=== PATIENT | female | born 1940 | race Caucasian/White ===

== ENCOUNTER 2020-07-23 16:16 | Inpatient (IN) ==
[2020-07-23] MEDS ORDERED: NS 1000 ML 1,000 ML IV SCH ×2 (18:00→20:00)
[2020-07-23 18:42] LABS: BASOPHILS % (AUTO) 0.7 % (0.2-1.0); EOSINOPHILS # (AUTO) 0.2 x10^3/uL (0.0-0.2); EOSINOPHILS % (AUTO) 2.6 % (0.9-2.9); HEMATOCRIT 31.8 % (36.0-47.0); HEMOGLOBIN 10.2 g/dL (12.0-16.0); LYMPHOCYTES # (AUTO) 1.6 X10^3/uL (1.3-2.9); MEAN CORPUSCULAR HEMOGLOBIN 29.7 pg (27.0-34.0); MEAN CORPUSCULAR HGB CONC 32.2 g/dL (33.0-35.0); MEAN CORPUSCULAR VOLUME 92.3 fL (80.0-100.0); MEAN PLATELET VOLUME 8.5 fL (7.4-11.0); MONOCYTES # (AUTO) 0.6 x10^3/uL (0.3-0.8); MONOCYTES % (AUTO) 9.6 % (0.0-13.0); NEUTROPHILS # (AUTO) 3.4 x10^3/uL (2.2-4.8); NEUTROPHILS % (AUTO) 59.1 % (42.0-75.0); PLATELET COUNT 154 X10^3/uL (150.0-450.0); RED BLOOD COUNT 3.44 X10^6/uL (3.5-5.4); RED CELL DISTRIBUTION WIDTH 14.5 % (11.6-16.5); WHITE BLOOD COUNT 5.8 X10^3/uL (3.6-10.0)
--- NOTE | 2020-07-23 18:47 | RAD ---
RIB SERIESHISTORY:CoughStudy: Single view of the chest.Comparison:NoneFindings:Cardiomegaly and pulmonary vascular congestion No focal consolidations, pleural effusions or pneumothorax. Osseous structures demonstrate no acute abnormality.IMPRESSION:1. Cardiomegaly and pulmonary vascular congestion.Electronically signed by: MARTIN CORONADO (July 23, 2020 18:45:28)
[2020-07-23 19:00] LABS: LACTIC ACID 1.9 mmol/L (0.4-2.0)
[2020-07-23 19:06] LABS: ALBUMIN 3.3 g/dL (3.4-5.0); CALCIUM 10.1 mg/dL (8.5-10.1); CARBON DIOXIDE 35.3 mmol/L (21-32); COR CA(FOR HYPOALB) 10.7 mg/dL (8.5-10.1); CREATININE 1.62 mg/dL (0.55-1.02); FREE T4 (FREE THYROXINE) 1.16 ng/dL (0.76-1.46); TOTAL PROTEIN 7.9 g/dL (6.4-8.2); TSH (3RD GENERATION) 8.444 uIU/mL (0.358-3.74)
[2020-07-23 19:37] LABS: ABG BASE EXCESS 11.7 mmol/L (-2.0-2.0)
[2020-07-23 19:39] LABS: ABG ALLEN TEST POS
[2020-07-23] MEDS: ROCEPHIN 1 GRAM IV PREMIX 1 G/50 ML IV.SOLN. IV SCH (19:45)
[2020-07-23 20:08] LABS: BILIRUBIN,URINE NEGATIVE (NEGATIVE); BLOOD/HEMOGLOBIN,URINE NEGATIVE (NEGATIVE); GLUCOSE, URINE NEGATIVE (NEGATIVE); KETONES,URINE NEGATIVE (NEGATIVE); LEUKOCYTE ESTERASE ,URINE 1+ (NEGATIVE); NITRITES,URINE NEGATIVE (NEGATIVE); PROTEIN,URINE 2+ (NEGATIVE); UROBILINOGEN,URINE NORMAL (NORMAL)
[2020-07-23 20:19] LABS: APPEARANCE,URINE CLEAR (CLEAR); COLOR,URINE YELLOW (YELLOW)
[2020-07-23 20:20] LABS: BACTERIA,URINE TRACE /HPF (NEGATIVE); RBC,URINE 0-2 /HPF (0-3); SQUAMOUS EPITHELIAL CELL,UR RARE /HPF (NEGATIVE)
[2020-07-23] MEDS ORDERED: NS 1000 ML 1,000 ML IV ONE (20:57)
[2020-07-23] MEDS ORDERED: REQUIP PO ONE (22:00)
[2020-07-23] MEDS: NS 1000 ML 1,000 ML IV SCH (22:07)
[2020-07-23] MEDS: REQUIP PO SCH (22:07)
[2020-07-23] MEDS: KAYEXALATE SUSP PO SCH (22:07)
[2020-07-24] MEDS: KAYEXALATE SUSP PO SCH (05:00)
[2020-07-24 08:01] LABS: ABG BASE EXCESS 11.1 mmol/L (-2.0-2.0)
[2020-07-24 08:02] LABS: ABG ALLEN TEST POS
[2020-07-24] MEDS: ROCEPHIN 1 GRAM IV PREMIX 1 G/50 ML IV.SOLN. IV SCH (08:14)
[2020-07-24] MEDS: REQUIP PO SCH ×2 (08:15→21:16)
[2020-07-24 08:42] LABS: BASOPHILS % (AUTO) 0.5 % (0.2-1.0); EOSINOPHILS # (AUTO) 0.2 x10^3/uL (0.0-0.2); HEMATOCRIT 30.9 % (36.0-47.0); HEMOGLOBIN 9.8 g/dL (12.0-16.0); LYMPHOCYTES # (AUTO) 1.2 X10^3/uL (1.3-2.9); LYMPHOCYTES % (AUTO) 29.4 % (21.0-51.0); MEAN CORPUSCULAR HEMOGLOBIN 29.2 pg (27.0-34.0); MEAN CORPUSCULAR HGB CONC 31.7 g/dL (33.0-35.0); MEAN CORPUSCULAR VOLUME 92.2 fL (80.0-100.0); MEAN PLATELET VOLUME 8.4 fL (7.4-11.0); MONOCYTES # (AUTO) 0.4 x10^3/uL (0.3-0.8); MONOCYTES % (AUTO) 10.7 % (0.0-13.0); NEUTROPHILS # (AUTO) 2.2 x10^3/uL (2.2-4.8); NEUTROPHILS % (AUTO) 55.4 % (42.0-75.0); PLATELET COUNT 132 X10^3/uL (150.0-450.0); RED BLOOD COUNT 3.35 X10^6/uL (3.5-5.4); RED CELL DISTRIBUTION WIDTH 14.8 % (11.6-16.5)
[2020-07-24 08:53] LABS: ALBUMIN 2.9 g/dL (3.4-5.0); CALCIUM 9.2 mg/dL (8.5-10.1); CARBON DIOXIDE 34.1 mmol/L (21-32); COR CA(FOR HYPOALB) 10.1 mg/dL (8.5-10.1); CREATININE 1.25 mg/dL (0.55-1.02); TOTAL PROTEIN 7.2 g/dL (6.4-8.2)
[2020-07-24] MEDS: BENICAR TAB 40 MG PO SCH (09:53)
[2020-07-24] MEDS: TOPROL XL PO SCH (09:54)
--- NOTE | 2020-07-24 12:50 | DR.H&P ---
H&P - History & Physical for Day of: H&P Date: 07/23/20 - Chief Complaint Chief Complaint: AMS, SOB, WEAKNESS, DEHYDRATION - History of Present Illness History of Present Illness: PT IS 80 WF DIRECT ADMIT WITH CO PER FAMILY OF AMS, WEAKNESS AND DEHYDRATION. REPORTED MULTIPLE FALLS IN LAST FEW WEEKS. PT HAS HAD POOR PO FLUID INTAKE WITH INCREASED LOWER LEG SWELLING AND INCREASED SOB. PT FAMILY REPORTS HAVING DIFFICULT TIME CARING FOR HER DUE TO INCREASED WEAKNESS. PT HAS PMH OF HTN, OA, CHF, COPD. PT ADMITTED FOR TREATMENT OF ACUTE ILLNESS - Past Medical History Past Medical History: Anxiety, Arthritis, COPD, Coronary Artery Disease, Diabetes, Dyslipidemia, GERD, Hyperthyroidism - Past Surgical History Surgical History: Cholecystectomy, Hysterectomy, Joint Replacement, Ortho Surgery - Family History Family Medical History: Diabetes Mellitus, Coronary Artery Disease - Social History Does patient currently use any type of tobacco product: No Have you used tobacco products in the last 12 months: No Type of Tobacco Use: None Does any household member use tobacco: No Alcohol Use: None Drug Use: None - Medications Home Medications: adhesive tape Allergy (Verified 07/23/20 19:04) meperidine [From Demerol] Adverse Reaction (Verified 07/23/20 19:04) CONTINUE taking the following medications atorvastatin 20 mg PO HS 07/24/20 [History] clonazepam 1.5 mg PO HS 07/24/20 [History] esomeprazole magnesium 40 mg PO BID 07/24/20 [History] ferrous sulfate 325 mg PO BIDWM 07/24/20 [History] furosemide 20 mg PO DAILY 07/24/20 [History] gabapentin 600 mg PO BID 07/24/20 [History] insulin glargine [Lantus U-100 Insulin] SUBCUT 07/24/20 [History] insulin lispro [Humalog U-100 Insulin] 07/24/20 [History] lidocaine 1 patch TRANSDERMAL DAILY 07/24/20 [History] meloxicam 15 mg PO DAILY 07/24/20 [History] metoclopramide HCl 10 mg PO ACHS 07/24/20 [History] metoprolol succinate 25 mg PO DAILY 07/24/20 [History] naproxen 500 mg PO BID 07/24/20 [History] olmesartan 20 mg PO DAILY 07/24/20 [History] pramipexole 0.75 mg PO HS 07/24/20 [History] ropinirole 2 mg PO BID 07/24/20 [History] sucralfate 1 g PO QID 07/24/20 [History] trazodone 100 mg PO HS 07/24/20 [History] ursodiol 900 mg PO HS 07/24/20 [History] - Review of Systems Constitutional: Weakness Eyes: No Symptoms Reported ENT: No Symptoms Reported Respiratory: Shortness of Breath Cardiovascular: Edema Gastrointestinal: No Symptoms Reported Genitourinary: No Symptoms Reported Musculoskeletal: Back Pain, Leg Pain Skin: No Symptoms Reported Neurological: Weakness - Physical Exam Vital Signs: Temperature 98.7 F Pulse Rate [Left Radial] 90 Respiratory Rate 22 Blood Pressure [Left Arm] 187/84 Blood Pressure [Right Arm] 167/71 O2 Sat by Pulse Oximetry 91 Oriented: Person Eyes: Normal Ear: Normal Nose: Normal Throat: Normal Respiratory: RLL Diminished, LLL Diminished Cardiovascular: Normal : Normal Auscultation: Bowel Sounds: Normal Palpation: Normal Tenderness: Normal Skin: Decreased Turgur Musculoskeletal: Right, Left, Leg, Back:Lumbar, Motor Deficit Psychiatric: Anxiety Affect: Anxious Speech Pattern: Appropriate, Delayed - Assessment/Plan (1) Hypoxemia Status: Acute Plan: ADMIT, CXR ON ADMISSION. CARDIAC MONITORING, SUPPLEMENTAL O2. RESP CONSULT, IV HYDRATION, CE. ADMISSION AND AM LABS. GENTLE IV HYDRATION, MASTERSON WITH STRICT I&OS. UC AND BC ON ADMISSION, VERIFY HOME MEDICATION (2) Acute hyperkalemia Status: Acute (3) Dehydration Status: Acute (4) Altered mental status Status: Acute (5) Weakness Status: Acute (6) Hypertension Status: Acute - Allergies Allergies/Adverse Reactions: Allergies Allergy/AdvReac Type Severity Reaction Status Date / Time adhesive tape Allergy Verified 07/23/20 19:04 meperidine [From Demerol] AdvReac Verified 07/23/20 19:04
[2020-07-24 13:13] LABS: CKMB % 2.9 % (<4); CREATINE KINASE 34 Units/L (26-192); CREATINE KINASE MB < 1.0 ng/mL (0-4.0); TROPONIN I < 0.02 ng/mL (0-1.5)
[2020-07-24] MEDS ORDERED: ZOFRAN INJ 4 MG VIAL ONE (14:20)
[2020-07-24] MEDS: ZOFRAN INJ 4 MG VIAL IVP PRN (14:24)
[2020-07-24] MEDS: LASIX IVP SCH (16:45)
[2020-07-24] MEDS ORDERED: DESYREL PO ONE (19:22)
[2020-07-24] MEDS ORDERED: LIPITOR TAB 20 MG ONE (19:22)
[2020-07-24] MEDS: LIPITOR TAB 20 MG PO SCH (21:17)
[2020-07-24] MEDS: NS 1000 ML 1,000 ML IV SCH (21:17)
[2020-07-24] MEDS: DESYREL PO SCH (21:17)
--- NOTE | 2020-07-25 06:33 | RAD ---
HISTORYAMS CHFSTUDYAP [id number]/06/2021FINDINGSStable cardiomegaly with no evidence for localized pneumonia, pulmonary edema or other acute process. Contrast material again noted in vertebrae from previous surgical procedures. Neurostimulator device projected over the lower midline thoracic spine.IMPRESSIONNo interval change or acute abnormality identified.Electronically signed by: DANGELO PANIAGUA (July 25, 2020 06:31:10)
[2020-07-25 06:55] LABS: BASOPHILS % (AUTO) 0.5 % (0.2-1.0); EOSINOPHILS # (AUTO) 0.1 x10^3/uL (0.0-0.2); HEMATOCRIT 31.7 % (36.0-47.0); LYMPHOCYTES # (AUTO) 0.9 X10^3/uL (1.3-2.9); LYMPHOCYTES % (AUTO) 20.3 % (21.0-51.0); MEAN CORPUSCULAR HGB CONC 31.4 g/dL (33.0-35.0); MEAN CORPUSCULAR VOLUME 92.2 fL (80.0-100.0); MEAN PLATELET VOLUME 8.6 fL (7.4-11.0); MONOCYTES # (AUTO) 0.5 x10^3/uL (0.3-0.8); MONOCYTES % (AUTO) 10.8 % (0.0-13.0); NEUTROPHILS % (AUTO) 65.4 % (42.0-75.0); PLATELET COUNT 127 X10^3/uL (150.0-450.0); RED BLOOD COUNT 3.44 X10^6/uL (3.5-5.4); RED CELL DISTRIBUTION WIDTH 14.4 % (11.6-16.5); WHITE BLOOD COUNT 4.6 X10^3/uL (3.6-10.0)
[2020-07-25 07:13] LABS: ALBUMIN 3.1 g/dL (3.4-5.0); CALCIUM 9.9 mg/dL (8.5-10.1); CARBON DIOXIDE 34.6 mmol/L (21-32); COR CA(FOR HYPOALB) 10.6 mg/dL (8.5-10.1); CREATININE 1.2 mg/dL (0.55-1.02); TOTAL PROTEIN 7.6 g/dL (6.4-8.2)
[2020-07-25] MEDS: NS 1000 ML 1,000 ML IV SCH ×2 (07:39→15:23)
[2020-07-25] MEDS: TOPROL XL PO SCH (08:37)
[2020-07-25] MEDS: ROCEPHIN 1 GRAM IV PREMIX 1 G/50 ML IV.SOLN. IV SCH ×2 (08:37→22:15)
[2020-07-25] MEDS: BENICAR TAB 40 MG PO SCH (08:37)
[2020-07-25] MEDS: REQUIP PO SCH ×2 (08:37→20:57)
[2020-07-25 08:52] VITALS: BMI 40.1
[2020-07-25] MEDS: LASIX IVP SCH (09:10)
[2020-07-25] MEDS: LIPITOR TAB 20 MG PO SCH (20:57)
[2020-07-25] MEDS: DESYREL PO SCH (20:57)
[2020-07-25] MEDS ORDERED: HumuLIN R ONE (21:36)
[2020-07-25] MEDS: HumuLIN R SUBCUT PRN (21:40)
[2020-07-25] MEDS: ZOFRAN INJ 4 MG VIAL IVP PRN (23:05)
[2020-07-26] MEDS: NS 1000 ML 1,000 ML IV SCH ×2 (04:02→21:08)
[2020-07-26] MEDS: HumuLIN R SUBCUT PRN ×3 (05:27→21:30)
[2020-07-26 06:21] LABS: BASOPHILS % (AUTO) 0.5 % (0.2-1.0); EOSINOPHILS # (AUTO) 0.2 x10^3/uL (0.0-0.2); EOSINOPHILS % (AUTO) 3.4 % (0.9-2.9); HEMATOCRIT 31.1 % (36.0-47.0); LYMPHOCYTES % (AUTO) 18.1 % (21.0-51.0); MEAN CORPUSCULAR HEMOGLOBIN 29.4 pg (27.0-34.0); MEAN PLATELET VOLUME 7.5 fL (7.4-11.0); MONOCYTES # (AUTO) 0.6 x10^3/uL (0.3-0.8); MONOCYTES % (AUTO) 10.6 % (0.0-13.0); NEUTROPHILS # (AUTO) 3.6 x10^3/uL (2.2-4.8); NEUTROPHILS % (AUTO) 67.4 % (42.0-75.0); PLATELET COUNT 129 X10^3/uL (150.0-450.0); RED BLOOD COUNT 3.38 X10^6/uL (3.5-5.4); RED CELL DISTRIBUTION WIDTH 14.4 % (11.6-16.5); WHITE BLOOD COUNT 5.3 X10^3/uL (3.6-10.0)
[2020-07-26 06:34] LABS: CALCIUM 9.5 mg/dL (8.5-10.1); CARBON DIOXIDE 33.9 mmol/L (21-32); COR CA(FOR HYPOALB) 10.3 mg/dL (8.5-10.1); CREATININE 1.14 mg/dL (0.55-1.02); TOTAL PROTEIN 7.6 g/dL (6.4-8.2)
[2020-07-26] MEDS: REQUIP PO SCH ×2 (08:43→21:10)
[2020-07-26] MEDS: BENICAR TAB 40 MG PO SCH (08:44)
[2020-07-26] MEDS: TOPROL XL PO SCH (08:44)
[2020-07-26] MEDS: PROzac PO SCH (13:19)
[2020-07-26] MEDS: LASIX IVP SCH (17:20)
[2020-07-26] MEDS ORDERED: COZAAR PO STA (17:50)
[2020-07-26] MEDS ORDERED: COZAAR ONE (17:54)
[2020-07-26] MEDS: ROCEPHIN 1 GRAM IV PREMIX 1 G/50 ML IV.SOLN. IV SCH (21:07)
[2020-07-26] MEDS: LIPITOR TAB 20 MG PO SCH (21:10)
[2020-07-26] MEDS: DESYREL PO SCH (21:10)
[2020-07-26] MEDS: SNACK - Diabetic Appropriate PO SCH (21:40)
[2020-07-27 04:56] LABS: ABG BASE EXCESS 10.1 mmol/L (-2.0-2.0)
[2020-07-27 04:57] LABS: ABG ALLEN TEST POS
[2020-07-27] MEDS: HumuLIN R SUBCUT PRN ×4 (05:33→20:55)
--- NOTE | 2020-07-27 06:39 | RAD ---
HISTORYHYPOXIASTUDYCHEST, 1 [id number]/08/2021.TECHNIQUEAP view of the chestFINVAIL HEALTH HOSPITALpine neurostimulator noted. The cardiac silhouette is mildly enlarged. Mild bibasilar patchy opacities appears similar to prior. No definite pleural effusion or pneumothorax. Soft tissue attenuation limits evaluation.IMPRESSIONSimilar appearance of mild bibasilar patchy opacities may represent atelectasis or pneumonia.Electronically signed by: Ld Suarez (July 27, 2020 06:37:32)
[2020-07-27 06:49] LABS: BASOPHILS % (AUTO) 0.4 % (0.2-1.0); EOSINOPHILS # (AUTO) 0.2 x10^3/uL (0.0-0.2); EOSINOPHILS % (AUTO) 3.2 % (0.9-2.9); HEMATOCRIT 31.7 % (36.0-47.0); HEMOGLOBIN 10.5 g/dL (12.0-16.0); LYMPHOCYTES # (AUTO) 1.1 X10^3/uL (1.3-2.9); LYMPHOCYTES % (AUTO) 16.1 % (21.0-51.0); MEAN CORPUSCULAR HEMOGLOBIN 30.1 pg (27.0-34.0); MEAN CORPUSCULAR HGB CONC 33.2 g/dL (33.0-35.0); MEAN CORPUSCULAR VOLUME 90.6 fL (80.0-100.0); MEAN PLATELET VOLUME 7.8 fL (7.4-11.0); MONOCYTES # (AUTO) 0.6 x10^3/uL (0.3-0.8); MONOCYTES % (AUTO) 9.8 % (0.0-13.0); NEUTROPHILS # (AUTO) 4.6 x10^3/uL (2.2-4.8); NEUTROPHILS % (AUTO) 70.5 % (42.0-75.0); PLATELET COUNT 129 X10^3/uL (150.0-450.0); RED CELL DISTRIBUTION WIDTH 14.4 % (11.6-16.5); WHITE BLOOD COUNT 6.5 X10^3/uL (3.6-10.0)
[2020-07-27 07:05] LABS: ALANINE AMINOTRANSFERASE 35 Units/L (12-78); ALBUMIN 3.2 g/dL (3.4-5.0); ALKALINE PHOSPHATASE 54 Units/L (46-116); ASPARTATE AMINO TRANSFERASE 47 Units/L (15-37); BLOOD UREA NITROGEN 18 mg/dL (7-18); CALCIUM 9.4 mg/dL (8.5-10.1); CHLORIDE 97 mmol/L (98-107); COR NA(FOR HYPERGLY) 138 mmol/L (136-145); CREATININE 1.05 mg/dL (0.55-1.02); SODIUM 135 mmol/L (136-145); TOTAL PROTEIN 7.9 g/dL (6.4-8.2); eGFR NON BLACK RACES 54 (>60)
[2020-07-27] MEDS ORDERED: COZAAR PO SCH (09:00)
[2020-07-27] MEDS: LASIX IVP SCH (09:13)
[2020-07-27] MEDS: TOPROL XL PO SCH (09:15)
[2020-07-27] MEDS: REQUIP PO SCH ×2 (09:15→20:36)
[2020-07-27] MEDS: BENICAR TAB 40 MG PO SCH (09:16)
[2020-07-27] MEDS: NS 1000 ML 1,000 ML IV SCH ×3 (09:16→23:22)
[2020-07-27] MEDS: PROzac PO SCH (09:19)
[2020-07-27] MEDS: LOVENOX INJ 40 MG SYR SC SCH (13:06)
[2020-07-27] MEDS: ROCEPHIN 1 GRAM IV PREMIX 1 G/50 ML IV.SOLN. IV SCH (20:35)
[2020-07-27] MEDS: LIPITOR TAB 20 MG PO SCH (20:35)
[2020-07-27] MEDS: DESYREL PO SCH (20:35)
[2020-07-27] MEDS: SNACK - Diabetic Appropriate PO SCH (20:36)
[2020-07-28] MEDS: HumuLIN R SUBCUT PRN ×3 (05:46→16:31)
[2020-07-28 06:28] LABS: BASOPHILS % (AUTO) 0.5 % (0.2-1.0); EOSINOPHILS # (AUTO) 0.1 x10^3/uL (0.0-0.2); EOSINOPHILS % (AUTO) 1.6 % (0.9-2.9); HEMATOCRIT 32.1 % (36.0-47.0); HEMOGLOBIN 10.6 g/dL (12.0-16.0); LYMPHOCYTES % (AUTO) 15.3 % (21.0-51.0); MEAN CORPUSCULAR HEMOGLOBIN 29.9 pg (27.0-34.0); MEAN CORPUSCULAR HGB CONC 32.9 g/dL (33.0-35.0); MEAN PLATELET VOLUME 8.2 fL (7.4-11.0); MONOCYTES # (AUTO) 0.7 x10^3/uL (0.3-0.8); MONOCYTES % (AUTO) 9.7 % (0.0-13.0); NEUTROPHILS # (AUTO) 4.9 x10^3/uL (2.2-4.8); NEUTROPHILS % (AUTO) 72.9 % (42.0-75.0); PLATELET COUNT 122 X10^3/uL (150.0-450.0); RED BLOOD COUNT 3.53 X10^6/uL (3.5-5.4); RED CELL DISTRIBUTION WIDTH 14.6 % (11.6-16.5); WHITE BLOOD COUNT 6.7 X10^3/uL (3.6-10.0)
[2020-07-28 06:43] LABS: ALBUMIN 3.1 g/dL (3.4-5.0); CALCIUM 9.5 mg/dL (8.5-10.1); CARBON DIOXIDE 32.3 mmol/L (21-32); COR CA(FOR HYPOALB) 10.2 mg/dL (8.5-10.1); CREATININE 1.13 mg/dL (0.55-1.02); TOTAL PROTEIN 7.7 g/dL (6.4-8.2)
[2020-07-28] MEDS: PROzac PO SCH (09:30)
[2020-07-28] MEDS: TOPROL XL PO SCH (09:30)
[2020-07-28] MEDS: BENICAR TAB 40 MG PO SCH (09:31)
[2020-07-28] MEDS: LOVENOX INJ 40 MG SYR SC SCH (09:31)
[2020-07-28] MEDS: REQUIP PO SCH ×2 (09:31→21:08)
[2020-07-28] MEDS: NS 1000 ML 1,000 ML IV SCH ×2 (13:40→16:23)
[2020-07-28] MEDS ORDERED: SNACK - Diabetic Appropriate PO SCH (20:00)
[2020-07-28] MEDS: DESYREL PO SCH (21:07)
[2020-07-28] MEDS: SNACK - Diabetic Appropriate PO SCH (21:07)
[2020-07-28] MEDS: ROCEPHIN 1 GRAM IV PREMIX 1 G/50 ML IV.SOLN. IV SCH (21:07)
[2020-07-28] MEDS: LIPITOR TAB 20 MG PO SCH (21:08)
[2020-07-28] MEDS: LANTUS SC SCH (21:08)
[2020-07-28] MEDS: ZOFRAN INJ 4 MG VIAL IVP PRN (22:09)
[2020-07-29] MEDS: NS 1000 ML 1,000 ML IV SCH ×2 (04:59→17:46)
[2020-07-29] MEDS: HumuLIN R SUBCUT PRN ×4 (06:06→22:20)
[2020-07-29] MEDS ORDERED: COLACE CAP 100 MG PO PRN (06:08)
[2020-07-29] MEDS ORDERED: MILK OF MAGNESIA PO PRN (06:08)
[2020-07-29 07:00] LABS: BASOPHILS % (AUTO) 0.5 % (0.2-1.0); EOSINOPHILS # (AUTO) 0.2 x10^3/uL (0.0-0.2); EOSINOPHILS % (AUTO) 2.5 % (0.9-2.9); HEMATOCRIT 32.3 % (36.0-47.0); HEMOGLOBIN 10.4 g/dL (12.0-16.0); LYMPHOCYTES # (AUTO) 1.1 X10^3/uL (1.3-2.9); LYMPHOCYTES % (AUTO) 15.7 % (21.0-51.0); MEAN CORPUSCULAR HEMOGLOBIN 29.7 pg (27.0-34.0); MEAN CORPUSCULAR HGB CONC 32.3 g/dL (33.0-35.0); MEAN CORPUSCULAR VOLUME 91.9 fL (80.0-100.0); MEAN PLATELET VOLUME 9.4 fL (7.4-11.0); MONOCYTES # (AUTO) 0.6 x10^3/uL (0.3-0.8); MONOCYTES % (AUTO) 8.5 % (0.0-13.0); NEUTROPHILS # (AUTO) 5.1 x10^3/uL (2.2-4.8); NEUTROPHILS % (AUTO) 72.8 % (42.0-75.0); PLATELET COUNT 118 X10^3/uL (150.0-450.0); RED BLOOD COUNT 3.52 X10^6/uL (3.5-5.4); RED CELL DISTRIBUTION WIDTH 14.8 % (11.6-16.5); WHITE BLOOD COUNT 7.1 X10^3/uL (3.6-10.0)
[2020-07-29 07:07] LABS: ALANINE AMINOTRANSFERASE 33 Units/L (12-78); ALKALINE PHOSPHATASE 56 Units/L (46-116); ASPARTATE AMINO TRANSFERASE 49 Units/L (15-37); BLOOD UREA NITROGEN 19 mg/dL (7-18); CALCIUM 9.1 mg/dL (8.5-10.1); CARBON DIOXIDE 29.6 mmol/L (21-32); CHLORIDE 99 mmol/L (98-107); COR CA(FOR HYPOALB) 9.9 mg/dL (8.5-10.1); COR NA(FOR HYPERGLY) 140 mmol/L (136-145); CREATININE 0.96 mg/dL (0.55-1.02); SODIUM 136 mmol/L (136-145); TOTAL PROTEIN 7.9 g/dL (6.4-8.2); eGFR NON BLACK RACES 59 (>60)
[2020-07-29] MEDS: PROzac PO SCH (09:27)
[2020-07-29] MEDS: LOVENOX INJ 40 MG SYR SC SCH (09:27)
[2020-07-29] MEDS: BENICAR TAB 40 MG PO SCH (09:27)
[2020-07-29] MEDS: REQUIP PO SCH ×2 (09:27→22:17)
[2020-07-29] MEDS: TOPROL XL PO SCH (09:27)
--- NOTE | 2020-07-29 11:17 | RAD ---
HISTORYCHF, COPDSTUDYCHEST, 1 [id number]/10/2021FINDINGSThe trachea is midline. There is stable moderate cardiomegaly. There is a posterior epidural catheter unchanged since prior projecting probably at T7-T8. There is vertebroplasties of the mid thoracic and lower thoracic vertebral bodies. There is mild elevation of the right diaphragm. No evidence of pneumothorax or pleural effusionsNo dominant alveolar infiltrateIMPRESSIONNo acute cardiopulmonary disease.Electronically signed by: Pascale Moreira (July 29, 2020 11:15:09)
[2020-07-29] MEDS ORDERED: MILK OF MAGNESIA PO ONE (13:36)
[2020-07-29] MEDS: LASIX IVP SCH ×2 (14:56→17:45)
[2020-07-29] MEDS: PROTONIX INJ 40 MG VIAL IVP SCH (14:57)
[2020-07-29] MEDS: SNACK - Diabetic Appropriate PO SCH (20:00)
[2020-07-29] MEDS: ROCEPHIN 1 GRAM IV PREMIX 1 G/50 ML IV.SOLN. IV SCH (22:16)
[2020-07-29] MEDS: DESYREL PO SCH (22:16)
[2020-07-29] MEDS: LIPITOR TAB 20 MG PO SCH (22:16)
[2020-07-29] MEDS: LANTUS SC SCH (22:20)
[2020-07-30] MEDS: HumuLIN R SUBCUT PRN (05:42)
[2020-07-30] MEDS: NS 1000 ML 1,000 ML IV SCH (06:11)
[2020-07-30] MEDS ORDERED: TOPROL XL PO SCH (09:00)
[2020-07-30] MEDS: LOVENOX INJ 40 MG SYR SC SCH (09:51)
[2020-07-30] MEDS: REQUIP PO SCH (09:52)
[2020-07-30] MEDS: PROTONIX INJ 40 MG VIAL IVP SCH (09:52)
[2020-07-30] MEDS: PROzac PO SCH (09:52)
[2020-07-30] MEDS: BENICAR TAB 40 MG PO SCH (09:52)
[2020-07-30 10:44] VITALS: BP 147/86
== END 2020-07-30 11:35 | DRG 190 ==
LOC: MED/SURG → OBSVTOIN 17:53
PROVIDERS: ADMIT Internal Medicine; ATTEND Internal Medicine
DX: N39.0 Urinary tract infection, site not specified; Z91.81 History of falling; E87.5 Hyperkalemia; R06.02 Shortness of breath; R51.9 Headache, unspecified; E86.0 Dehydration; I25.10 Atherosclerotic heart disease of native coronary artery without angina pectoris; E11.65 Type 2 diabetes mellitus with hyperglycemia; R29.6 Repeated falls; R62.7 Adult failure to thrive; R53.1 Weakness; K21.9 Gastro-esophageal reflux disease without esophagitis; N28.9 Disorder of kidney and ureter, unspecified; I11.0 Hypertensive heart disease with heart failure; J44.1 Chronic obstructive pulmonary disease with (acute) exacerbation; E78.2 Mixed hyperlipidemia; Z87.81 Personal history of (healed) traumatic fracture; R41.82 Altered mental status, unspecified; J18.0 Bronchopneumonia, unspecified organism

== ENCOUNTER 2020-08-26 11:28 | Inpatient (IN) ==
[2020-08-26] MEDS ORDERED: NS 1000 ML 1,000 ML IV ONE ×2 (12:23→20:47)
--- NOTE | 2020-08-26 13:13 | DR.URINEF ---
HPI Time Seen Time Seen by Provider: 08/26/20 11:56 PCP Primary Care Physician: WOO HPI Comment HPI Comment: An 80 y/o [facility] with information that she has voided little x 2 days (this was affirmed by the pt. also). She denies associated abdominal pain or nausea. She was reported to have had outpt. labs. this morning that showed a BUN of 23 and Cr. value of 5.75. Laboratory data reviewed showed a pattern in the past. She had similar renal values on 08/12/2020 and was admitted. Complaint Chief Complaint:: [facility] STAFF STATES PT HAS BEEN HAVING DECREASED UOP OVER THE PAST TWO DAYS. LABS WERE DRAWN PRIOR TARRIVAL TO ED. BUN 23 CREATININE 5.75. COVID-19 Coronavirus risk:travel/contact w/high risk person: No Has patient experienced Coronavirus symptoms: No Reviewed Nurses Notes Reviewed: Yes Source History Provided: Patient and [facility] Mode of Arrival Mode of Arrival: Ambulatory Timing Onset of Chief Complaint: 08/25/20 Context Onset: Spontaneous History of: None PMH PMH Past Medical History: Yes Past Medical History: Anemia, Anxiety, Arthritis, CHF, COPD, Coronary Artery Disease, Diabetes, GERD and Hypertension Past Surgical History: Yes Surgical History: Unknown, Cholecystectomy and Ortho Surgery Family History History of Family Medical Conditions: Yes Family Medical History: Diabetes Mellitus and Coronary Artery Disease Social History Does any household member use tobacco: No Alcohol Use: None Do you use any recreational Drugs:: No Lives With: Other Lives Where: [facility] Travel Risk Coronavirus risk:travel/contact w/high risk person: No Has patient experienced Coronavirus symptoms: No Infectious screening In the last 2 months have you had wt loss of >10#?: NO Have you had fever, night sweats or hemotysis?: No Have you traveled outside the country in the last 6 months?: No Isolation: Standard ROS Review of Systems Constitutional: No Symptoms Reported Eyes: No Symptoms Reported ENTM: No Symptoms Reported Respiratoy: No Symptoms Reported Cardiovascular: No Symptoms Reported Gastrointestinal/Abdominal: No Symptoms Reported Genitourinary: No Symptoms Reported Neurological: No Symptoms Reported Musculoskeletal: No Symptoms Reported Integumentary: No Symptoms Reported Hematologic/Lymphatic: No Symptoms Reported Endocrine: No Symptoms Reported Psychiatric: No Symptoms Reported PE Vital Signs Vitals: Temperature 97.8 F Pulse Rate 81 Respiratory Rate 20 Blood Pressure [Right Arm] 188/79 Blood Pressure 105/53 O2 Sat by Pulse Oximetry 97 General Limitations: No Limitations General Appearance: Alert and In No Apparent Distress Head Head Exam: Normal Inspection and Atraumatic Eyes Eye exam: Normal Appearance and EOMI ENT ENT Exam: Normal Exam, Normal Oropharynx, Normal External Ear Exam and Mucous Membranes Moist Neck Neck Exam: Normal Inspection, Full ROM and Trachea Midline Chest Chest Inspection: Normal Inspection and Symmetric Chest Wall Rise Respiratory Respiratory Exam: Normal Lung Sounds Bilat Cardiovascular Cardiovascular Exam: Regular Rate, Normal Rhythm, Normal Heart Sounds, +S1 and +S2 Abdominal Exam Abdominal Exam: Normal Inspection, Normal Bowel Sounds and Soft Rectal Rectal Exam: Deferred Genitourinary External Exam: Female: Deferred Extremities Extremities Exam: Normal Inspection and Full ROM Back Back Exam: Normal Inspection and Full ROM Neurologic Neurological Exam: Alert and Oriented X3 Psychiatric Psychiatric Exam: Normal Affect and Normal Mood Skin Skin Exam: Dry and Normal Color COURSE Reevaluation 1st: Improved Consultation Consultation Comments: I reviewed her renal function studies back to about 1 month ago. On 07/23/20 her BUN/Cr was 47/1.62 with a GFR of 32. On 07/27/20, the values were 18/1.05 with a GFR of 54. On 08/13/20 values were: 57/4.84 with a GFR of 9. All these values were normalized by 08/19/20: at 3/1.02 with GFR of 55. Yesterday's values were 23/5.75 with GFR of 8. These up and down were discussed with her PCP, Her home records reflect Lasix/metoprolol and Benicar. Plan is to admit for re-hydration and to monitor labs. nephrotoxic meds will be witheld. Education/Counseling Education/Counseling: Patient, Family, Education and Counseling Educated On: Treatment, Diagnosis, Prognosis and Needs for Follow Up ROR Labs Reviewed Laboratory Results Reviewed?: Yes Result Diagrams: 08/26/20 12:08 08/26/20 12:08 Laboratory: WBC 3.3 X10^3/uL (3.6-10.0) L 08/26/20 12:08 RBC 3.42 X10^6/uL (3.5-5.4) L 08/26/20 12:08 Hgb 10.4 g/dL (12.0-16.0) L 08/26/20 12:08 Hct 32.4 % (36.0-47.0) L 08/26/20 12:08 MCV 94.9 fL (80.0-100.0) 08/26/20 12:08 MCH 30.5 pg (27.0-34.0) 08/26/20 12:08 MCHC 32.1 g/dL (33.0-35.0) L 08/26/20 12:08 RDW 15.2 % (11.6-16.5) 08/26/20 12:08 Plt Count 111 X10^3/uL (150.0-450.0) L 08/26/20 12:08 MPV 8.6 fL (7.4-11.0) 08/26/20 12:08 Neut % (Auto) 60.6 % (42.0-75.0) 08/26/20 12:08 Lymph % (Auto) 22.9 % (21.0-51.0) 08/26/20 12:08 [place] % (Auto) 12.2 % (0.0-13.0) 08/26/20 12:08 Eos % (Auto) 3.8 % (0.9-2.9) H 08/26/20 12:08 Baso % (Auto) 0.5 % (0.2-1.0) 08/26/20 12:08 Neut # (Auto) 2.0 x10^3/uL (2.2-4.8) L 08/26/20 12:08 Lymph # (Auto) 0.8 X10^3/uL (1.3-2.9) L 08/26/20 12:08 [place] # (Auto) 0.4 x10^3/uL (0.3-0.8) 08/26/20 12:08 Eos # (Auto) 0.1 x10^3/uL (0.0-0.2) 08/26/20 12:08 Baso # (Auto) 0.0 X10^3/uL (0.0-0.1) 08/26/20 12:08 Absolute Nucleated RBC 0.1 /100WBC 08/26/20 12:08 Sodium 142 mmol/L (136-145) 08/26/20 12:08 Corrected Sodium 146 mmol/L (136-145) H 08/26/20 12:08 Potassium 4.4 mmol/L (3.5-5.1) 08/26/20 12:08 Chloride 104 mmol/L (98-107) 08/26/20 12:08 Carbon Dioxide 28.0 mmol/L (21-32) 08/26/20 12:08 BUN 27 mg/dL (7-18) H 08/26/20 12:08 Creatinine 7.12 mg/dL (0.55-1.02) H 08/26/20 12:08 Est GFR (MDRD) Af Amer 7 (>60) L 08/26/20 12:08 Est GFR (MDRD) Non-Af 6 (>60) L 08/26/20 12:08 Glucose 256 mg/dL (65-99) H 08/26/20 12:08 Calcium 9.0 mg/dL (8.5-10.1) 08/26/20 12:08 Corrected Calcium 9.8 mg/dL (8.5-10.1) 08/26/20 12:08 Total Bilirubin 0.40 mg/dL (0.2-1.0) 08/26/20 12:08 AST 28 Units/L (15-37) 08/26/20 12:08 ALT 26 Units/L (12-78) 08/26/20 12:08 Alkaline Phosphatase 43 Units/L (46-116) L 08/26/20 12:08 Total Protein 7.0 g/dL (6.4-8.2) 08/26/20 12:08 Albumin 3.0 g/dL (3.4-5.0) L 08/26/20 12:08 Globulin 4.0 g/dL (2.5-4.5) 08/26/20 12:08 Albumin/Globulin Ratio 0.8 Ratio (1.1-2.1) L 08/26/20 12:08 Specimen Type Catherized urine 08/26/20 13:40 Urine Color Brown (YELLOW) 08/26/20 13:40 Urine Appearance Hazy (CLEAR) 08/26/20 13:40 Urine pH 5.0 (5.0 - 8.0) 08/26/20 13:40 Ur Specific [place] 1.025 (1.000-1.030) 08/26/20 13:40 Urine Protein 3+ (NEGATIVE) 08/26/20 13:40 Urine Glucose (UA) 2+ (NEGATIVE) 08/26/20 13:40 Urine Ketones 1+ (NEGATIVE) 08/26/20 13:40 Urine Occult Blood 1+ (NEGATIVE) 08/26/20 13:40 Urine Nitrite Positive (NEGATIVE) 08/26/20 13:40 Urine Bilirubin 1+ (NEGATIVE) 08/26/20 13:40 Urine Urobilinogen 1+ (NORMAL) 08/26/20 13:40 Ur Leukocyte Esterase 3+ (NEGATIVE) 08/26/20 13:40 Urine RBC 3-5 /HPF (0-3) A 08/26/20 13:40 Urine WBC 20-30 /HPF (0-5) A 08/26/20 13:40 Ur Squamous Epith Cells Few /HPF (NEGATIVE) 08/26/20 13:40 Urine Bacteria 1+ /HPF (NEGATIVE) 08/26/20 13:40 Urine Mucus Rare /HPF (NEGATIVE) 08/26/20 13:40 Ur Culture Indicated? Yes/culture set up 08/26/20 13:40 Opioid Opioid Risk Tool Age (Aleks box if 16-45): No History of Preadolescent Sexual Abuse: No Total: 0 Total Score Risk Category: Low Risk Copyright: Juan CONDON predicting aberrant behaviors Diagnosis Discharge Problem: Hypovolemia, Acute UTI, Acute kidney injury Hypotension Qualifiers: Hypotension type: unspecified hypotension type Qualified Code(s): I95.9 - Hypotension, unspecified
[2020-08-26] MEDS ORDERED: NS 1000 ML 1,000 ML ONE ×2 (13:44→14:51)
[2020-08-26 13:55] LABS: BILIRUBIN,URINE 1+ (NEGATIVE); BLOOD/HEMOGLOBIN,URINE 1+ (NEGATIVE); GLUCOSE, URINE 2+ (NEGATIVE); KETONES,URINE 1+ (NEGATIVE); LEUKOCYTE ESTERASE ,URINE 3+ (NEGATIVE); NITRITES,URINE POSITIVE (NEGATIVE); PROTEIN,URINE 3+ (NEGATIVE); UROBILINOGEN,URINE 1+ (NORMAL)
[2020-08-26 14:07] LABS: APPEARANCE,URINE HAZY (CLEAR); COLOR,URINE BROWN (YELLOW)
[2020-08-26 14:08] LABS: BACTERIA,URINE 1+ /HPF (NEGATIVE); MUCUS,URINE RARE /HPF (NEGATIVE); SQUAMOUS EPITHELIAL CELL,UR FEW /HPF (NEGATIVE)
[2020-08-26 14:45] LABS: BASOPHILS % (AUTO) 0.5 % (0.2-1.0); EOSINOPHILS # (AUTO) 0.1 x10^3/uL (0.0-0.2); EOSINOPHILS % (AUTO) 3.8 % (0.9-2.9); HEMATOCRIT 32.4 % (36.0-47.0); HEMOGLOBIN 10.4 g/dL (12.0-16.0); LYMPHOCYTES # (AUTO) 0.8 X10^3/uL (1.3-2.9); LYMPHOCYTES % (AUTO) 22.9 % (21.0-51.0); MEAN CORPUSCULAR HEMOGLOBIN 30.5 pg (27.0-34.0); MEAN CORPUSCULAR HGB CONC 32.1 g/dL (33.0-35.0); MEAN CORPUSCULAR VOLUME 94.9 fL (80.0-100.0); MEAN PLATELET VOLUME 8.6 fL (7.4-11.0); MONOCYTES # (AUTO) 0.4 x10^3/uL (0.3-0.8); MONOCYTES % (AUTO) 12.2 % (0.0-13.0); NEUTROPHILS % (AUTO) 60.6 % (42.0-75.0); PLATELET COUNT 111 X10^3/uL (150.0-450.0); RED BLOOD COUNT 3.42 X10^6/uL (3.5-5.4); RED CELL DISTRIBUTION WIDTH 15.2 % (11.6-16.5); WHITE BLOOD COUNT 3.3 X10^3/uL (3.6-10.0)
[2020-08-26 14:57] LABS: COR CA(FOR HYPOALB) 9.8 mg/dL (8.5-10.1); CREATININE 7.12 mg/dL (0.55-1.02)
[2020-08-26] MEDS: NS 1000 ML 1,000 ML IV SCH (16:34)
[2020-08-26] MEDS ORDERED: ROCEPHIN VIAL 1 GRAM IM ONE (16:51)
[2020-08-26] MEDS ORDERED: ZOFRAN INJ 4 MG VIAL IVP ONE (17:05)
[2020-08-26] MEDS ORDERED: ZOFRAN INJ 4 MG VIAL ONE ×2 (17:05→22:23)
[2020-08-26] MEDS ORDERED: ZOFRAN TAB 4 MG PO PRN (17:13)
[2020-08-26] MEDS ORDERED: NEURONTIN CAP 300 MG PO PRN (17:13)
[2020-08-26] MEDS ORDERED: HumuLIN R SC PRN (17:13)
[2020-08-26] MEDS ORDERED: TYLENOL 325 MG TAB PO PRN (17:13)
--- NOTE | 2020-08-26 18:00 | RAD ---
CHEST, 1 VIEWHISTORY:SOB, HX CHFStudy: Single view of the chest.Comparison:NoneFindings:Cardiomegaly and pulmonary vascular congestion No focal consolidations, pleural effusions or pneumothorax. Osseous structures demonstrate no acute abnormality.IMPRESSION:1. Cardiomegaly and pulmonary vascular congestion.Electronically signed by: MARTIN CORONADO (Aug 26, 2020 17:58:14)
--- NOTE | 2020-08-26 18:09 | DR.H&P ---
H&P - History & Physical for Day of: H&P Date: 08/26/20 - Chief Complaint Chief Complaint: no urine output - History of Present Illness History of Present Illness: PT IS 80 WF ER ADMISSION ADMITTED AFTER CO DECREASED URINE OUTPUT IV THE PAST 2-3 DAYS. PT HAD UA ORDERED AND CBC CMP AND ABD SERIES ON OUTPT BASIS. PT CREAT >5, WELL ABOVE HER BASELINE. PT CREAT 7 IN ER. PT BP WAS LOW. PT WAS RECENTLY TREATED FOR ACUTE PANCREATITIS AND CDIFF INFECTION WHILE INPT AT [facility]. PT HAS KX OF DM, HTN, CHF. HER HOME MEDICATION WERE ADJUSTED FOLLOWING RECENT ILLNESS, HOWEVER PT WAS STILL ON LASIX AND ANTIHYPERTENSIVES. PT ADMITTED FOR ACUTE KIDNEY INJURY, HYPOTENSION. - Past Medical History Past Medical History: Coronary Artery Disease, Hypertension, Diabetes, Anxiety, Anemia, COPD, GERD, Arthritis, CHF - Past Surgical History Surgical History: Cholecystectomy, Ortho Surgery, Unknown - Family History Family Medical History: Diabetes Mellitus, Coronary Artery Disease - Social History Does patient currently use any type of tobacco product: No Have you used tobacco products in the last 12 months: No Type of Tobacco Use: None Does any household member use tobacco: No Alcohol Use: None Drug Use: None Risks, benefits, and alternatives of opioids discussed: No Prescription drug monitoring program results: PDMP reviewed and no concerns identified - Medications Home Medications: adhesive tape Allergy (Verified 07/23/20 19:04) meperidine [From Demerol] Adverse Reaction (Verified 07/23/20 19:04) CONTINUE taking the following medications acetaminophen [Tylenol] 650 mg PO Q4H PRN 08/26/20 [History] clarithromycin 500 mg PO BID 08/26/20 [History] metronidazole [Flagyl] 500 mg PO TID 08/26/20 [History] pantoprazole [Protonix] 40 mg PO BID 08/26/20 [History] - Review of Systems Constitutional: Weakness Eyes: No Symptoms Reported ENT: No Symptoms Reported Respiratory: No Symptoms Reported Cardiovascular: Edema Gastrointestinal: Nausea Musculoskeletal: Back Pain, Leg Pain Skin: No Symptoms Reported Neurological: Weakness - Physical Exam Vital Signs: Temperature 97.8 F Pulse Rate 84 Respiratory Rate 20 Blood Pressure [Right Arm] 188/79 Blood Pressure 130/61 O2 Sat by Pulse Oximetry 94 Oriented: Normal Eyes: Normal, Diplopia Nose: Normal Throat: Normal Respiratory: RLL Diminished, LLL Diminished Cardiovascular: Normal, Edema : Normal Auscultation: Bowel Sounds: Normal Palpation: Normal Tenderness: Normal Skin: Normal Musculoskeletal: Right, Left, Knee, Back:Lumbar, Motor Deficit Psychiatric: Normal Mood Description: Calm Speech Pattern: Clear, Appropriate - Assessment/Plan (1) Acute kidney injury Status: Acute Plan: ADMIT, GENTLE IV HYDRATION WITH STRICT I&OS DUE TO HX OF CHF. CARDIAC MONITORING AND BP CONTROL. VERIFY MEDICATION, HOLDING SOME PRN MEDICATIONDUE TO RENAL FAILURE. OBTAIN WEEKLY VS LOG FROM [facility]. PHARMACY CONSULT FOR ANTIBIOTIC REVIEW (2) CHF (congestive heart failure) Status: Acute (3) Hypovolemia Status: Acute (4) Hypotension Qualifiers: Hypotension type: unspecified hypotension type Qualified Code(s): I95.9 - Hypotension, unspecified Status: Acute (5) C. difficile diarrhea Status: Acute (6) UTI (urinary tract infection) Qualifiers: Urinary tract infection type: acute cystitis Hematuria presence: without hematuria Qualified Code(s): N30.00 - Acute cystitis without hematuria Status: Acute (7) HTN (hypertension) Qualifiers: Hypertension type: essential hypertension Qualified Code(s): I10 - Essential (primary) hypertension Status: Acute - Allergies Allergies/Adverse Reactions: Allergies Allergy/AdvReac Type Severity Reaction Status Date / Time adhesive tape Allergy Verified 07/23/20 19:04 meperidine [From Demerol] AdvReac Verified 07/23/20 19:04
[2020-08-26 18:12] LABS: AMYLASE 45 Units/L (25-115); LIPASE 252 Units/L (73-393)
[2020-08-26] MEDS ORDERED: PHARMACY CONSULT LTC MEDICATIONS XX SCH (19:00)
[2020-08-26] MEDS ORDERED: REQUIP PO SCH (21:00)
[2020-08-26] MEDS ORDERED: DESYREL PO SCH (21:00)
[2020-08-26] MEDS ORDERED: NexIUM PO SCH (21:00)
[2020-08-26] MEDS ORDERED: REGLAN TAB 10 MG PO SCH (21:00)
[2020-08-26] MEDS ORDERED: TOBRAMYCIN SULFATE 120 MG in NS 100 ML IV 100 ML IV ONE (21:05)
[2020-08-26] MEDS: LANTUS SC SCH (21:19)
[2020-08-26] MEDS: PROTONIX TAB 40 MG PO SCH (21:39)
[2020-08-26] MEDS: SNACK - Diabetic Appropriate PO SCH (21:39)
[2020-08-26] MEDS: MIRAPEX TAB 0.25 MG PO SCH (21:40)
[2020-08-26] MEDS: KLONOPIN TAB 1 MG PO SCH (21:40)
[2020-08-26] MEDS: LIPITOR TAB 20 MG PO SCH (21:40)
[2020-08-26] MEDS: HEMOCYTE-PLUS PO SCH (21:41)
[2020-08-26] MEDS: ZOFRAN INJ 4 MG VIAL IVP PRN ×2 (22:26→22:27)
[2020-08-26 22:38] LABS: CKMB % 5.3 % (<4); CREATINE KINASE 32 Units/L (26-192); CREATINE KINASE MB 1.7 ng/mL (0-4.0); TROPONIN I < 0.02 ng/mL (0-1.5)
[2020-08-26] MEDS ORDERED: LEVOPHED INJ 8 MG in D5W 250 ML IV 242 ML IV PRN (23:14)
[2020-08-26] MEDS ORDERED: D5W 250 ML IV 250 ML IV ONE (23:20)
[2020-08-26] MEDS ORDERED: LEVOPHED INJ ONE (23:20)
[2020-08-27] MEDS: NS 1000 ML 1,000 ML IV SCH ×4 (00:35→16:04)
[2020-08-27 02:46] LABS: CREATINE KINASE MB 1.1 ng/mL (0-4.0); TROPONIN I < 0.02 ng/mL (0-1.5)
[2020-08-27 03:05] LABS: CKMB % 2.4 % (<4); CREATINE KINASE 46 Units/L (26-192)
[2020-08-27] MEDS ORDERED: PHENERGAN INJ 25 MG IM PRN (03:44)
[2020-08-27] MEDS ORDERED: REGLAN INJ 10 MG VIAL IVP ONE (06:25)
[2020-08-27] MEDS ORDERED: REGLAN INJ 10 MG VIAL ONE (06:27)
[2020-08-27 06:48] LABS: BASOPHILS % (AUTO) 0.6 % (0.2-1.0); EOSINOPHILS # (AUTO) 0.2 x10^3/uL (0.0-0.2); EOSINOPHILS % (AUTO) 4.1 % (0.9-2.9); HEMATOCRIT 28.5 % (36.0-47.0); HEMOGLOBIN 9.3 g/dL (12.0-16.0); LYMPHOCYTES # (AUTO) 1.1 X10^3/uL (1.3-2.9); LYMPHOCYTES % (AUTO) 28.9 % (21.0-51.0); MEAN CORPUSCULAR HEMOGLOBIN 30.8 pg (27.0-34.0); MEAN CORPUSCULAR HGB CONC 32.5 g/dL (33.0-35.0); MEAN CORPUSCULAR VOLUME 94.6 fL (80.0-100.0); MEAN PLATELET VOLUME 8.4 fL (7.4-11.0); MONOCYTES # (AUTO) 0.5 x10^3/uL (0.3-0.8); MONOCYTES % (AUTO) 11.6 % (0.0-13.0); NEUTROPHILS # (AUTO) 2.1 x10^3/uL (2.2-4.8); NEUTROPHILS % (AUTO) 54.8 % (42.0-75.0); PLATELET COUNT 106 X10^3/uL (150.0-450.0); RED BLOOD COUNT 3.01 X10^6/uL (3.5-5.4); RED CELL DISTRIBUTION WIDTH 15.5 % (11.6-16.5); WHITE BLOOD COUNT 3.9 X10^3/uL (3.6-10.0)
[2020-08-27 06:53] LABS: ALBUMIN 2.7 g/dL (3.4-5.0); CALCIUM 8.5 mg/dL (8.5-10.1); COR CA(FOR HYPOALB) 9.5 mg/dL (8.5-10.1); CREATININE 7.45 mg/dL (0.55-1.02); TOTAL PROTEIN 6.3 g/dL (6.4-8.2)
[2020-08-27 07:01] LABS: CKMB % 4.3 % (<4); CREATINE KINASE 28 Units/L (26-192); CREATINE KINASE MB 1.2 ng/mL (0-4.0); TROPONIN I < 0.02 ng/mL (0-1.5)
--- NOTE | 2020-08-27 07:03 | RAD ---
HISTORYAbdominal [id number]/08/2021FINDINGSThe abdominal gas pattern is nonspecific and nonobstructive . No abnormal masses or abnormal calcifications are identified. Postsurgical changes are present in t he lumbar spine and sacrum with evidence for prior kyphoplasty and hardware present. There is a batte ry pack for a spinal stimulator overlying the right iliac wing.IMPRESSIONUnremarkable KUBElectronical ly signed by: HERI ZURITA (Aug 27, 2020 06:49:53)
[2020-08-27] MEDS ORDERED: ROCEPHIN VIAL 1 GRAM IV SCH (09:00)
[2020-08-27] MEDS ORDERED: LOVENOX INJ 30 MG SYR SC SCH (09:00)
[2020-08-27] MEDS: HEMOCYTE-PLUS PO SCH ×2 (09:29→21:28)
[2020-08-27] MEDS ORDERED: ROCEPHIN 1 GRAM IV PREMIX 1 G/50 ML IV.SOLN. IV ONE (09:38)
[2020-08-27] MEDS: PROTONIX TAB 40 MG PO SCH ×2 (09:43→21:29)
[2020-08-27] MEDS ORDERED: ROCEPHIN 1 GRAM IV PREMIX 1 G/50 ML IV.SOLN. IV SCH (10:00)
[2020-08-27] MEDS: LIDODERM 5% PATCH TD SCH ×2 (10:15→10:16)
[2020-08-27 10:18] VITALS: BMI 37.4
[2020-08-27] MEDS: ZOFRAN INJ 4 MG VIAL IVP PRN ×2 (12:11→21:00)
[2020-08-27 12:14] LABS: ALBUMIN 2.4 g/dL (3.4-5.0); CALCIUM 8.2 mg/dL (8.5-10.1); CARBON DIOXIDE 26.5 mmol/L (21-32); COR CA(FOR HYPOALB) 9.5 mg/dL (8.5-10.1); CREATININE 7.64 mg/dL (0.55-1.02); TOTAL PROTEIN 5.8 g/dL (6.4-8.2)
[2020-08-27 21:26] VITALS: BP 145/65
[2020-08-27] MEDS: KLONOPIN TAB 1 MG PO SCH (21:28)
[2020-08-27] MEDS: SNACK - Diabetic Appropriate PO SCH (21:28)
[2020-08-27] MEDS: LANTUS SC SCH (21:29)
[2020-08-27] MEDS: LIPITOR TAB 20 MG PO SCH (21:29)
[2020-08-27] MEDS: MIRAPEX TAB 0.25 MG PO SCH (21:29)
== END 2020-08-27 21:08 | disposition short-term general hospital (02) | DRG 683 ==
LOC: ER 11:28 → ICU 16:51
PROVIDERS: ADMIT Internal Medicine; ATTEND Internal Medicine
DX: E86.1 Hypovolemia; I11.0 Hypertensive heart disease with heart failure; N17.8 Other acute kidney failure; N30.00 Acute cystitis without hematuria; I50.9 Heart failure, unspecified; I95.89 Other hypotension; E11.65 Type 2 diabetes mellitus with hyperglycemia; B96.29 Other Escherichia coli [E. coli] as the cause of diseases classified elsewhere; R10.84 Generalized abdominal pain